=== PATIENT | male | born 1960 | race African-American/Black ===

== ENCOUNTER → 2016-11-23 | Day surgery (SDC) | payer BC ==
[2016-11-15 09:44] VITALS: BMI 33.7
[~2016-11-23] MED LIST: DEXAMETHASONE 4 MG/ML VIAL IV ONE; FENTANYL 100 MCG/2 ML VIAL IV PRN; FENTANYL 250 MCG/5 ML VIAL IV ONE; HYDROmorphone 1 MG INJECTION IV PRN; ISOVUE-300 (61%) 50 ML ONE; LABETALOL 20 MG/4 ML SYRINGE IV PRN; LIDOCAINE 100 MG PFS IV ONE; Levofloxacin 500 mg/100 ml D5W 500 MG/100 ML RTU IV ONE; MEPERIDINE 25 MG/ML TUBEX IV PRN; MIDAZOLAM 2 MG/2 ML VIAL IV ONE; ONDANSETRON HCL 4 MG ODT TAB PO PRN; ONDANSETRON HCL 4 MG/2 ML VIAL IV ONE; ONDANSETRON HCL 4 MG/2 ML VIAL IV PRN; PROMETHAZINE 25 MG/ML VIAL IV PRN; PROPOFOL 200 MG/20 ML VIAL IV ONE; SUCCINYLCHOLINE 20 MG/1 ML INJ 10 ML MDV IV ONE; hydrALAZINE 20 MG/ML VIAL IV PRN
--- NOTE | 2016-11-23 12:07 | SC.ANESPOS ---
Post-Anesthesia Note LOC: [facility] Calling Post-Anesthesia Assessment: Awake, Returned to Baseline, Hemodynamically Stable , Pain Control Adequate Phase I & II Recovery Complete: Yes Apparent Anesthesia Complication: No : N PACU Discharge Time: 16:20 - Vital Signs Blood Pressure: 150/96 Pulse: 65 Resp Rate: 18 O2 Sat: 100 Temp: 98.1 F - Comments Anesthesia Discharge Time Report Time 16:20
--- NOTE | 2016-11-23 12:09 | HIM.ANES ---
Anesthesia Evaluation & Plan Diagnoses: CALCULUS OF URETER (11/23/16) - Focused Review of Systems Cardiac History: Yes: Hx Hypertension, Hx Cardiac Disorders, Hx Abnormal Cholesterol/Hyperlipidemia HEENT: Yes: Cataract Removal, Hx Dysphagia, Hx Vision Problem (PRESCRIPTION GLASSES), Other HEENT Problems Respiratory: Yes: Hx Sleep Apnea, Hx CPAP Dependent (Counselled re CPAP use required after GA) Gastrointestinal: Yes: Hx Gastroesophageal Reflux Disease (Controlled @ present) , Hx Gastrointestinal Disorders (Crohn's Hx), Hx Colonoscopy, Hx Endoscopy, Hx Esophageal Dilatation Neurological/Musculoskeletal: Yes: Hx Back Pain No: Hx Neurological Disorders Psychological: No Hx Depression, No Hx Mental/Emotional Disorders Blood/Autoimmune: Yes: Hx Anemia (LOW IRON LEVEL) No: Hx AIDS, Hx Hepatitis (type) Smoking Status: Never smoker Surgical History: Yes: Back (C5-C6 FUSION 2007) Other Surgical History: VASECTOMY - Focused Physical Exam NPO since: after Midnight Mallampati: Class III Thyromental Distance: Greater than 3 Neck: Full Range of Motion Dental: Normal - no significant findings Cardiovascular/Chest: Normal Respiratory: Lungs clear Any problems with anesthesia, including nausea and vomiting?: Yes (N&V) Any relatives with a history of Malignant Hyperthermia?: No Beta Scout given (if appropriate): N/A Does the patient have a history of Motion Sickness-: Yes Other: Problem List Problem Status Onset Ureterolithiasis Acute Allergies Allergy/AdvReac Type Severity Reaction Status Date / Time No Known Allergies Allergy Verified 11/15/16 09:44 Home Medications Medication Instructions Recorded Last Taken Type Amlodipine [Norvasc] 10 mg PO DAILY 07/11/15 07/10/15 History 10mg Ketorolac Tromethamine [Toradol] 10 mg PO Q6H PRN #20 tab 11/15/16 Unknown Rx Omeprazole [Prilosec] 20 mg PO DAILY 11/15/16 Unknown History Ondansetron HCl [Zofran] 4 mg PO Q6H PRN #15 tab 11/15/16 Unknown Rx Oxycodone HCl [Roxicodone] 5 mg PO Q4-6H PRN #15 tablet 11/15/16 Unknown Rx Paroxetine HCl [Paxil] 10 mg PO DAILY 11/15/16 Unknown History Pravastatin Sodium [Pravachol] 40 mg PO DAILY 11/15/16 Unknown History Prednisone [Deltasone, Orasone] 20 mg PO . DIR 11/15/16 Unknown History Tadalafil [Cialis] 5 mg PO DAILY PRN 11/15/16 Unknown History Tamsulosin HCl [Flomax] 0.4 mg PO DAILY #7 cap 11/15/16 Unknown Rx Height and Weight Patient's height 5 ft 8 in Patient's weight 222 lb 6.4 oz BMI 33.7 - Anesthetic Plan Anesthesia Type: General ASA Class: 2 -: I have examined this patient and reviewed the medical record. The patient has been assessed prior to anesthesia. Risks and benefits of anesthesia and anesthetic technique options have been discussed and all questions answered. The patient accepts the risk and desires me to proceed with the planned anesthetic.
--- NOTE | 2016-11-23 15:31 | HIMOPRPT ---
SURGEON: DATE OF PROCEDURE: 11/23/16 PREOPERATIVE DIAGNOSIS: Left hydronephrosis and ureteral calculi. POSTOPERATIVE DIAGNOSIS: Passed left ureteral calculus. PROCEDURE PERFORMED: Cystoscopy, left retrograde pyelogram. SURGEON: Al Nascimento MD ANESTHESIA USED: General. INDICATION FOR PROCEDURE: The patient is an 56 BLACK M with a history of left flank pain and hydronephrosis, he was found to have a distal left ureteral calculus. He had had persistent flank pain and was brought in now for his cystoscopy ,left retrograde pyelogram with possible stone extraction. PROCEDURE IN DETAIL: The patient was brought into the operating room, placed on the table in the supine position. After adequate general anesthesia was achieved , the patient was carefully placed in dorsal lithotomy and the perineum prepped and draped in sterile fashion for the performance of cystoscopy. Initially, the 23-[place] scope was passed under direct vision into the bladder. The prostatic urethra was 3 cm in length with mild lateral lobe hypertrophy.. Inspection revealed the bladder to be intact and no lesions noted. Ureteral orifice were visualized and the left orifice had some periorbital erythema, mild. A 5 [place] open-ended catheter was then placed in the left ureteral orifice and using 4-6 cc of contrast retrograde pyelogram was obtained. No filling defects were noted in the course of the ureter and the pelvis was intact with delicate calices. Upon withdrawal of the catheter there was good efflux of contrast through the ureter . At this point then the procedure was terminated. The bladder was emptied and the cystoscope removed. The patient tolerated all this well. The patient was then awakened and taken to the recovery room in good condition.
[2016-11-23 17:53] VITALS: TEMP 98.1
[2016-11-23 17:59] VITALS: PULSE 65
[2016-11-23 19:55] VITALS: BP 150/96
== END ==
LOC: SDC 11:14
PROVIDERS: ATTEND Urology
PROC: BT1FZZZ Fluoroscopy of Left Kidney, Ureter and Bladder (ICD-10-PCS; principal; 2016-11-23 13:20)
DX: N13.30 Unspecified hydronephrosis (principal); Z79.82 Long term (current) use of aspirin; Z79.899 Other long term (current) drug therapy; I10 Essential (primary) hypertension; K21.9 Gastro-esophageal reflux disease without esophagitis; E78.00 Pure hypercholesterolemia, unspecified; G47.9 Sleep disorder, unspecified
CPT/HCPCS: 52005; J0330; J1100; J1956; J2001; J2250; J2405; J3010; J3490